=== PATIENT | male | born 1940 | race Caucasian/White ===

== ENCOUNTER 2024-01-09 17:41 | Observation (INO) ==
--- NOTE | 2024-01-09 17:49 | DR.AMS ---
HPI Time Seen Time Seen by Provider: 01/09/24 17:49 PE Vitals Vital Signs: Temp Pulse Resp BP Pulse Ox O2 Del Method 01/09/24 22:15 66 97 01/09/24 22:09 68 97 01/09/24 22:09 176/81 01/09/24 22:06 69 96 01/09/24 22:00 180/79 01/09/24 21:33 160/77 01/09/24 21:30 190/77 01/09/24 21:01 167/75 01/09/24 20:35 139/76 01/09/24 20:35 139/76 01/09/24 18:57 67 96 01/09/24 21:28 167/75 01/09/24 18:45 67 97 01/09/24 18:30 134/92 01/09/24 18:30 69 97 01/09/24 18:15 68 97 01/09/24 18:05 68 96 01/09/24 18:00 161/74 01/09/24 17:53 97.9 F 71 18 171/77 96 Room Air ROR Labs Reviewed Laboratory Results Reviewed?: Yes 01/11/24 05:08 01/11/24 05:08 Laboratory: WBC 8.3 X10^3/uL (3.6-10.0) 01/09/24 19:16 RBC 2.90 X10^6/uL (4.7-6.0) L 01/09/24 19:16 Hgb 9.4 g/dL (13.5-18.0) L 01/09/24 19:16 Hct 27.7 % (42.0-54.0) L 01/09/24 19:16 MCV 95.4 fL (80.0-100.0) 01/09/24 19:16 MCH 32.4 pg (27.0-34.0) 01/09/24 19:16 MCHC 34.0 g/dL (33.0-35.0) 01/09/24 19:16 RDW 14.1 % (11.6-16.5) 01/09/24 19:16 Plt Count 164 X10^3/uL (150.0-450.0) 01/09/24 19:16 MPV 9.3 fL (7.4-11.0) 01/09/24 19:16 Neut % (Auto) 65.9 % (42.0-75.0) 01/09/24 19:16 Lymph % (Auto) 13.9 % (21.0-51.0) L 01/09/24 19:16 [place] % (Auto) 15.8 % (0.0-13.0) H 01/09/24 19:16 Eos % (Auto) 3.9 % (0.9-2.9) H 01/09/24 19:16 Baso % (Auto) 0.5 % (0.2-1.0) 01/09/24 19:16 Neut # (Auto) 5.5 x10^3/uL (2.2-4.8) H 01/09/24 19:16 Lymph # (Auto) 1.1 X10^3/uL (1.3-2.9) L 01/09/24 19:16 [place] # (Auto) 1.3 x10^3/uL (0.3-0.8) H 01/09/24 19:16 Eos # (Auto) 0.3 x10^3/uL (0.0-0.2) H 01/09/24 19:16 Baso # (Auto) 0.0 X10^3/uL (0.0-0.1) 01/09/24 19:16 Absolute Nucleated RBC 0.0 /100WBC 01/09/24 19:16 Sodium 128 mmol/L (136-145) L 01/09/24 19:16 Corrected Sodium TNP 01/09/24 19:16 Potassium 4.9 mmol/L (3.5-5.1) 01/09/24 19:16 Chloride 94 mmol/L (98-107) L 01/09/24 19:16 Carbon Dioxide 26.3 mmol/L (21-32) 01/09/24 19:16 BUN 27 mg/dL (7-18) H 01/09/24 19:16 Creatinine 1.58 mg/dL (0.70-1.30) H 01/09/24 19:16 Est GFR (MDRD) Af Amer 54 (>60) L 01/09/24 19:16 Est GFR (MDRD) Non-Af 45 (>60) L 01/09/24 19:16 Glucose 99 mg/dL (65-99) 01/09/24 19:16 Calcium 8.1 mg/dL (8.5-10.1) L 01/09/24 19:16 Corrected Calcium 8.9 mg/dL (8.5-10.1) 01/09/24 19:16 Total Bilirubin 0.90 mg/dL (0.2-1.0) 01/09/24 19:16 AST 11 Units/L (15-37) L 01/09/24 19:16 ALT 12 Units/L (12-78) 01/09/24 19:16 Alkaline Phosphatase 70 Units/L (46-116) 01/09/24 19:16 Total Protein 5.9 g/dL (6.4-8.2) L 01/09/24 19:16 Albumin 3.0 g/dL (3.4-5.0) L 01/09/24 19:16 Globulin 2.9 g/dL (2.5-4.5) 01/09/24 19:16 Albumin/Globulin Ratio 1.0 Ratio (1.1-2.1) L 01/09/24 19:16 Specimen Type Clean catch urine 01/09/24 18:17 Urine Color Yellow (YELLOW) 01/09/24 18:17 Urine Appearance Clear (CLEAR) 01/09/24 18:17 Urine pH 6.0 (5.0 - 8.0) 01/09/24 18:17 Ur Specific [place] 1.015 (1.000-1.030) 01/09/24 18:17 Urine Protein Negative (NEGATIVE) 01/09/24 18:17 Urine Glucose (UA) Negative (NEGATIVE) 01/09/24 18:17 Urine Ketones Negative (NEGATIVE) 01/09/24 18:17 Urine Blood Negative (NEGATIVE) 01/09/24 18:17 Urine Nitrite Negative (NEGATIVE) 01/09/24 18:17 Urine Bilirubin Negative (NEGATIVE) 01/09/24 18:17 Urine Urobilinogen 1+ (NORMAL) 01/09/24 18:17 Ur Leukocyte Esterase Negative (NEGATIVE) 01/09/24 18:17 Urine RBC None seen /HPF (0-3) 01/09/24 18:17 Urine WBC 0-2 /HPF (0-5) 01/09/24 18:17 Ur Squamous Epith Cells Negative /HPF (NEGATIVE) 01/09/24 18:17 Amorphous Sediment Trace /HPF (NEGATIVE) 01/09/24 18:17 Urine Bacteria Trace /HPF (NEGATIVE) 01/09/24 18:17 Ur Culture Indicated? No/not indicated 01/09/24 18:17 Opioid Opioid Risk Tool Total: 0 Total Score Risk Category: Low Risk Copyright: Ney CARLOS predicting aberrant behaviors Discharge Plan Diagnosis Discharge Problem: Acute hyponatremia, Parkinson's disease, Delirium Discharge Plan Patient Disposition: ADMITTED INPATIENT Condition: Stable
[2024-01-09 18:30] LABS: BILIRUBIN,URINE NEGATIVE (NEGATIVE); BLOOD/HEMOGLOBIN,URINE NEGATIVE (NEGATIVE); GLUCOSE, URINE NEGATIVE (NEGATIVE); KETONES,URINE NEGATIVE (NEGATIVE); LEUKOCYTE ESTERASE ,URINE NEGATIVE (NEGATIVE); NITRITES,URINE NEGATIVE (NEGATIVE); PROTEIN,URINE NEGATIVE (NEGATIVE); UROBILINOGEN,URINE 1+ (NORMAL)
[2024-01-09 18:37] LABS: APPEARANCE,URINE CLEAR (CLEAR); BACTERIA,URINE TRACE /HPF (NEGATIVE); COLOR,URINE YELLOW (YELLOW); RBC,URINE NONE SEEN /HPF (0-3); SQUAMOUS EPITHELIAL CELL,UR NEGATIVE /HPF (NEGATIVE)
--- NOTE | 2024-01-09 19:25 | CT ---
EXAM: BRAIN W/O CON HISTORY: hallucinations, ams; COMPARISON: 08/09/2022 TECHNIQUE: Multiple axial images of the head were performed from the skullbase to the vertex using standard depa rtmental protocol. Sagittal and coronal reformatted images were performed. Dose reduction techniques including Automated Exposure Control (AEC) and adjustment of mA and kV were utilized. FINDINGS: The sulci, cisterns and ventricles are age appropriate. Mild cortical atrophy compatible with patien t's age. Decreased attenuation in the periventricular and subcortical white matter consistent with m icrovascular ischemic white matter changes. There is no evidence of acute territorial infarction, he morrhage, mass, mass effect or midline shift. There are no abnormal intra-axial or extra-axial fluid collections. The visualized paranasal sinuses and mastoid air cells are predominantly clear. IMPRESSION: Mild cortical atrophy with microvascular ischemic white matter changes. No acute intracranial pathology THIS IS AN ELECTRONICALLY VERIFIED FINAL REPORT 01/09/2024 7:21 PM - Electronically signed by Maverick Clancy MD
[2024-01-09 19:27] LABS: BASOPHILS % (AUTO) 0.5 % (0.2-1.0); EOSINOPHILS # (AUTO) 0.3 x10^3/uL (0.0-0.2); EOSINOPHILS % (AUTO) 3.9 % (0.9-2.9); HEMATOCRIT 27.7 % (42.0-54.0); HEMOGLOBIN 9.4 g/dL (13.5-18.0); LYMPHOCYTES # (AUTO) 1.1 X10^3/uL (1.3-2.9); LYMPHOCYTES % (AUTO) 13.9 % (21.0-51.0); MEAN CORPUSCULAR HEMOGLOBIN 32.4 pg (27.0-34.0); MEAN CORPUSCULAR VOLUME 95.4 fL (80.0-100.0); MEAN PLATELET VOLUME 9.3 fL (7.4-11.0); MONOCYTES # (AUTO) 1.3 x10^3/uL (0.3-0.8); MONOCYTES % (AUTO) 15.8 % (0.0-13.0); NEUTROPHILS # (AUTO) 5.5 x10^3/uL (2.2-4.8); NEUTROPHILS % (AUTO) 65.9 % (42.0-75.0); PLATELET COUNT 164 X10^3/uL (150.0-450.0); RED CELL DISTRIBUTION WIDTH 14.1 % (11.6-16.5); WHITE BLOOD COUNT 8.3 X10^3/uL (3.6-10.0)
[2024-01-09 19:37] LABS: ALANINE AMINOTRANSFERASE 12 Units/L (12-78); ALKALINE PHOSPHATASE 70 Units/L (46-116); ASPARTATE AMINO TRANSFERASE 11 Units/L (15-37); BLOOD UREA NITROGEN 27 mg/dL (7-18); CALCIUM 8.1 mg/dL (8.5-10.1); CARBON DIOXIDE 26.3 mmol/L (21-32); CHLORIDE 94 mmol/L (98-107); COR CA(FOR HYPOALB) 8.9 mg/dL (8.5-10.1); CREATININE 1.58 mg/dL (0.70-1.30); GLUCOSE 99 mg/dL (65-99); POTASSIUM 4.9 mmol/L (3.5-5.1); SODIUM 128 mmol/L (136-145); TOTAL PROTEIN 5.9 g/dL (6.4-8.2); eGFR NON BLACK RACES 45 (>60)
--- NOTE | 2024-01-09 20:05 | RAD ---
EXAM:FRONTAL VIEW CHEST X-RAYHISTORY:coughing, ams;COMPARISON:None.FINDINGS:Right thoracic skin shadow is notedNo focal consolidation is seen.The heart size is within normal limits.The mediastinum is unremarkable.There is no evidence of pleural effusion or gross pneumothorax.The trachea is midline.IMPRESSION:No focal consolidation is seen.The heart size is normal.THIS IS AN ELECTRONICALLY VERIFIED FINAL REPORT01/09/2024 8:02 PM - Electronically signed by Marcellus Tim MD
[2024-01-09] MEDS ORDERED: NS 1,000 ML IV 1,000 ML ONE (20:11)
[2024-01-09] MEDS: NS 1,000 ML IV 1,000 ML IV ONE (20:17)
--- NOTE | 2024-01-09 21:31 | DR.AMS ---
HPI Time Seen Time Seen by Provider: 01/09/24 17:49 PCP Primary Care Physician: Hui HPI Comment HPI Comment: According to family patient has history of Parkinson disease. Does well. Does have intermittent confusion which seem to have worsened today. Family were concerned that he may have a urinary tract infection or urosepsis brought him to the ER for evaluation. Patient did have a fall couple days ago did hurt his elbow no head injury that they can recall. Has no vomiting no diarrhea no aggressive behavior towards family Complaint Cheif Complaint Doctors Comments: altered mental status Chief Complaint:: EMS was called out the patient due to increased confusion and hallucinating. They state that the patient has parkinson's and does have a small amount of confusion on most days, but today was much worse. They state that he has answered questions inappropriate and has seen people that were not there. The patient has been this way in the past due to a UTI, and they are concerned that he has one now. COVID-19 Coronavirus risk:travel/contact w/high risk person: No Has patient experienced Coronavirus symptoms: No Reviewed Nurses Notes Reviewed: Yes Source History Provided: Patient, Family Member and EMS Mode of Arrival Mode of Arrival: Stretcher Timing Onset of Chief Complaint: 01/09/24 Came On: Gradually Symptoms: Worsening Duration Duration: Since Onset Duration: Hours PMH PMH Past Medical History: Yes Past Medical History: Hypertension Past Medical History Comment: Parkinson's, Afib Past Surgical History: Yes Surgical History: Ortho Surgery and Other Past Surgical History Comment: cataract, back Family History History of Family Medical Conditions: Yes Family Medical History: Diabetes Mellitus, Cancer, [place], Coronary Artery Disease and Hypertension Social History Does patient currently use any type of tobacco product: No Have you used tobacco products in the last 12 months: No Type of Tobacco Use: None Does any household member use tobacco: No Alcohol Use: None Do you use any recreational Drugs:: No Lives With: Family Lives Where: Home Travel Risk Coronavirus risk:travel/contact w/high risk person: No Has patient experienced Coronavirus symptoms: No Infectious screening In the last 2 months have you had wt loss of >10#?: NO Have you had fever, night sweats or hemotysis?: No Have you traveled outside the country in the last 6 months?: No Isolation: Standard ROS Review of Systems Constitutional: No Symptoms Reported Eyes: No Symptoms Reported ENTM: No Symptoms Reported Respiratoy: No Symptoms Reported Cardiovascular: No Symptoms Reported Gastrointestinal/Abdominal: No Symptoms Reported Genitourinary: No Symptoms Reported Neurological: See HPI Musculoskeletal: No Symptoms Reported Integumentary: No Symptoms Reported PE Vitals Vital Signs: Temp Pulse Resp BP Pulse Ox O2 Del Method 01/09/24 22:09 68 97 01/09/24 22:09 176/81 01/09/24 22:06 69 96 01/09/24 22:00 180/79 01/09/24 21:33 160/77 01/09/24 21:30 190/77 01/09/24 21:01 167/75 01/09/24 20:35 139/76 01/09/24 20:35 139/76 01/09/24 18:57 67 96 01/09/24 21:28 167/75 01/09/24 18:45 67 97 01/09/24 18:30 134/92 01/09/24 18:30 69 97 01/09/24 18:15 68 97 01/09/24 18:05 68 96 01/09/24 18:00 161/74 01/09/24 17:53 97.9 F 71 18 171/77 96 Room Air General Limitations: No Limitations General Appearance: Alert, In No Apparent Distress and Anxious Head Head Exam: Normal Inspection, Atraumatic and Normocephalic Eyes Eye exam: Normal Appearance and PERRL ENT ENT Exam: Mucous Membranes Moist Neck Neck Exam: Normal Inspection and Full ROM Chest Chest Inspection: Normal Inspection and Symmetric Chest Wall Rise Respiratory Respiratory Exam: Bilateral: Clear to Auscultation Cardiovascular Cardiovascular Exam: +S1 and +S2 Abdominal Exam Abdominal Exam: Normal Inspection, Normal Bowel Sounds and Soft Extremities Extremities Exam: Full ROM Neurological Neurological Exam: Alert (But no oriented to person place or time. Mask like facies, bradykinesia, no increased tone of the upper or lower) Skin Skin Exam: Normal Color MDM Differential Diagnosis Metabolic: Dehydration, Delirium tr. and Hyponatremia Infectious: UTI COURSE Treatment Treatment: labs ,cxr ,ct head Reevaluation 1st: Unchanged ROR Labs Reviewed 01/09/24 19:16 01/09/24 19:16 Laboratory: WBC 8.3 X10^3/uL (3.6-10.0) 01/09/24 19:16 RBC 2.90 X10^6/uL (4.7-6.0) L 01/09/24 19:16 Hgb 9.4 g/dL (13.5-18.0) L 01/09/24 19:16 Hct 27.7 % (42.0-54.0) L 01/09/24 19:16 MCV 95.4 fL (80.0-100.0) 01/09/24 19:16 MCH 32.4 pg (27.0-34.0) 01/09/24 19:16 MCHC 34.0 g/dL (33.0-35.0) 01/09/24 19:16 RDW 14.1 % (11.6-16.5) 01/09/24 19:16 Plt Count 164 X10^3/uL (150.0-450.0) 01/09/24 19:16 MPV 9.3 fL (7.4-11.0) 01/09/24 19:16 Neut % (Auto) 65.9 % (42.0-75.0) 01/09/24 19:16 Lymph % (Auto) 13.9 % (21.0-51.0) L 01/09/24 19:16 [place] % (Auto) 15.8 % (0.0-13.0) H 01/09/24 19:16 Eos % (Auto) 3.9 % (0.9-2.9) H 01/09/24 19:16 Baso % (Auto) 0.5 % (0.2-1.0) 01/09/24 19:16 Neut # (Auto) 5.5 x10^3/uL (2.2-4.8) H 01/09/24 19:16 Lymph # (Auto) 1.1 X10^3/uL (1.3-2.9) L 01/09/24 19:16 [place] # (Auto) 1.3 x10^3/uL (0.3-0.8) H 01/09/24 19:16 Eos # (Auto) 0.3 x10^3/uL (0.0-0.2) H 01/09/24 19:16 Baso # (Auto) 0.0 X10^3/uL (0.0-0.1) 01/09/24 19:16 Absolute Nucleated RBC 0.0 /100WBC 01/09/24 19:16 Sodium 128 mmol/L (136-145) L 01/09/24 19:16 Corrected Sodium TNP 01/09/24 19:16 Potassium 4.9 mmol/L (3.5-5.1) 01/09/24 19:16 Chloride 94 mmol/L (98-107) L 01/09/24 19:16 Carbon Dioxide 26.3 mmol/L (21-32) 01/09/24 19:16 BUN 27 mg/dL (7-18) H 01/09/24 19:16 Creatinine 1.58 mg/dL (0.70-1.30) H 01/09/24 19:16 Est GFR (MDRD) Af Amer 54 (>60) L 01/09/24 19:16 Est GFR (MDRD) Non-Af 45 (>60) L 01/09/24 19:16 Glucose 99 mg/dL (65-99) 01/09/24 19:16 Calcium 8.1 mg/dL (8.5-10.1) L 01/09/24 19:16 Corrected Calcium 8.9 mg/dL (8.5-10.1) 01/09/24 19:16 Total Bilirubin 0.90 mg/dL (0.2-1.0) 01/09/24 19:16 AST 11 Units/L (15-37) L 01/09/24 19:16 ALT 12 Units/L (12-78) 01/09/24 19:16 Alkaline Phosphatase 70 Units/L (46-116) 01/09/24 19:16 Total Protein 5.9 g/dL (6.4-8.2) L 01/09/24 19:16 Albumin 3.0 g/dL (3.4-5.0) L 01/09/24 19:16 Globulin 2.9 g/dL (2.5-4.5) 01/09/24 19:16 Albumin/Globulin Ratio 1.0 Ratio (1.1-2.1) L 01/09/24 19:16 Specimen Type Clean catch urine 01/09/24 18:17 Urine Color Yellow (YELLOW) 01/09/24 18:17 Urine Appearance Clear (CLEAR) 01/09/24 18:17 Urine pH 6.0 (5.0 - 8.0) 01/09/24 18:17 Ur Specific [place] 1.015 (1.000-1.030) 01/09/24 18:17 Urine Protein Negative (NEGATIVE) 01/09/24 18:17 Urine Glucose (UA) Negative (NEGATIVE) 01/09/24 18:17 Urine Ketones Negative (NEGATIVE) 01/09/24 18:17 Urine Blood Negative (NEGATIVE) 01/09/24 18:17 Urine Nitrite Negative (NEGATIVE) 01/09/24 18:17 Urine Bilirubin Negative (NEGATIVE) 01/09/24 18:17 Urine Urobilinogen 1+ (NORMAL) 01/09/24 18:17 Ur Leukocyte Esterase Negative (NEGATIVE) 01/09/24 18:17 Urine RBC None seen /HPF (0-3) 01/09/24 18:17 Urine WBC 0-2 /HPF (0-5) 01/09/24 18:17 Ur Squamous Epith Cells Negative /HPF (NEGATIVE) 01/09/24 18:17 Amorphous Sediment Trace /HPF (NEGATIVE) 01/09/24 18:17 Urine Bacteria Trace /HPF (NEGATIVE) 01/09/24 18:17 Ur Culture Indicated? No/not indicated 01/09/24 18:17 Opioid Opioid Risk Tool Age (Renny box if 16-45): No History of Preadolescent Sexual Abuse: No Total: 0 Total Score Risk Category: Low Risk Copyright: Ney CARLOS predicting aberrant behaviors Discharge Plan Diagnosis Discharge Problem: Acute hyponatremia, Parkinson's disease, Delirium Discharge Plan Patient Disposition: 01 HOME, SELF-CARE Condition: Stable Prescriptions: No Action amlodipine 5 mg tablet 5 mg PO QPM omeprazole 40 mg capsule,delayed release(DR/EC) 40 mg PO QNOON tramadol 50 mg tablet 50 mg PO BID PRN tamsulosin 0.4 mg capsule 0.4 mg PO QPM levothyroxine 50 mcg tablet 50 mcg PO QAM divalproex 125 mg tablet,delayed release (DR/EC) 125 mg PO BID doxazosin 4 mg tablet 4 mg PO BID diclofenac sodium 75 mg tablet,delayed release (DR/EC) 75 mg PO BID dorzolamide-timolol 22.3-6.8 mg/mL drops 1 drp OPHTHALMIC (EYE) BID Patient Comments: [NO ORIGINAL SIG] mirtazapine 15 mg tablet 15 mg PO QPM carbidopa-levodopa 25-100 mg tablet 1 tab PO TID ramipril 5 mg capsule 5 mg PO QAM Eliquis 5 mg tablet 5 mg PO BID potassium gluconate 550 mg (90 mg) Tablet 550 mg PO QNOON Health Concerns: Post Hospitalization: new medications and changes needed to prevent readmission or further decline. Pt educated and given instructions on all concerns. Plan of Treatment: Continue with present treatment and follow up plan. Pt is to keep follow up appointment as instructed and take medications as ordered. Orders to Discharge Patient Discharge Orders: Transfer (Routine); Ordered 01/09/24 Ordered By: Dung Colon Follow ups/Referrals Follow ups/Referrals: [facility],None [STAFF PHYSICIAN] - 3 days Instructions Stand Alone Forms: Post Hospital Follow Up Care ADDITIONAL NOTES Additional Notes Additional Notes: spoke with Dr Gallagher .agreed to have patient admitted
[2024-01-09] MEDS: KLONOPIN TAB 0.5 MG PO ONE (22:36)
[2024-01-09] MEDS: NS 1,000 ML IV 1,000 ML IV SCH (23:59)
[2024-01-10 00:11] VITALS: BMI 23.8
[2024-01-10] MEDS: ULTRAM PO PRN (00:50)
[2024-01-10] MEDS: SINEMET (PLAIN) 25/100 MG PO SCH (05:16)
[2024-01-10 06:16] LABS: BASOPHILS % (AUTO) 0.6 % (0.2-1.0); EOSINOPHILS # (AUTO) 0.2 x10^3/uL (0.0-0.2); EOSINOPHILS % (AUTO) 3.1 % (0.9-2.9); HEMATOCRIT 24.4 % (42.0-54.0); HEMOGLOBIN 8.4 g/dL (13.5-18.0); LYMPHOCYTES % (AUTO) 15.1 % (21.0-51.0); MEAN CORPUSCULAR HEMOGLOBIN 32.8 pg (27.0-34.0); MEAN CORPUSCULAR HGB CONC 34.6 g/dL (33.0-35.0); MEAN CORPUSCULAR VOLUME 94.8 fL (80.0-100.0); MEAN PLATELET VOLUME 9.6 fL (7.4-11.0); MONOCYTES % (AUTO) 15.9 % (0.0-13.0); NEUTROPHILS # (AUTO) 4.2 x10^3/uL (2.2-4.8); NEUTROPHILS % (AUTO) 65.3 % (42.0-75.0); PLATELET COUNT 151 X10^3/uL (150.0-450.0); RED BLOOD COUNT 2.57 X10^6/uL (4.7-6.0); RED CELL DISTRIBUTION WIDTH 13.6 % (11.6-16.5); WHITE BLOOD COUNT 6.4 X10^3/uL (3.6-10.0)
[2024-01-10 06:30] LABS: ALANINE AMINOTRANSFERASE 8 Units/L (12-78); ALBUMIN 2.6 g/dL (3.4-5.0); ALKALINE PHOSPHATASE 64 Units/L (46-116); ASPARTATE AMINO TRANSFERASE 10 Units/L (15-37); BLOOD UREA NITROGEN 21 mg/dL (7-18); CALCIUM 7.9 mg/dL (8.5-10.1); CHLORIDE 99 mmol/L (98-107); CREATININE 1.33 mg/dL (0.70-1.30); GLUCOSE 108 mg/dL (65-99); SODIUM 132 mmol/L (136-145); TOTAL PROTEIN 5.3 g/dL (6.4-8.2); eGFR NON BLACK RACES 54 (>60)
[2024-01-10 09:46] LABS: RETICULOCYTE % 0.87 % (0.8-2.2)
[2024-01-10] MEDS: SYNTHROID 50 mcg TAB PO SCH (09:58)
[2024-01-10] MEDS: COSOPT OPTH OP SCH (09:58)
[2024-01-10] MEDS: CARDURA PO SCH (09:58)
[2024-01-10] MEDS: ALTACE 5 MG CAP PO SCH (09:58)
[2024-01-10] MEDS: DEPAKOTE SPRINKLE PO SCH (09:58)
[2024-01-10] MEDS: ELIQUIS PO SCH (09:58)
[2024-01-10] MEDS: MILK OF MAGNESIA PO SCH (09:58)
[2024-01-10] MEDS: NS 100 ML IV 100 ML with VENOFER 100 MG IV ONE (11:45)
[2024-01-10] MEDS: VOLTAREN 1 % GEL MULTI DOSE TUBE TOP SCH (11:45)
[2024-01-10] MEDS: PROCRIT or EPOGEN VIAL 10,000 UNITS SC SCH (11:45)
[2024-01-10] MEDS: COLACE CAP 100 MG PO SCH (20:13)
[2024-01-10] MEDS: FLOMAX PO SCH (20:13)
[2024-01-10] MEDS: NORVASC TAB 5 MG PO SCH (20:13)
[2024-01-10] MEDS ORDERED: REMERON PO SCH (21:00)
[2024-01-11 05:35] LABS: BASOPHILS % (AUTO) 0.6 % (0.2-1.0); EOSINOPHILS # (AUTO) 0.2 x10^3/uL (0.0-0.2); EOSINOPHILS % (AUTO) 2.1 % (0.9-2.9); HEMATOCRIT 24.4 % (42.0-54.0); HEMOGLOBIN 8.2 g/dL (13.5-18.0); LYMPHOCYTES % (AUTO) 13.6 % (21.0-51.0); MEAN CORPUSCULAR HGB CONC 33.6 g/dL (33.0-35.0); MEAN CORPUSCULAR VOLUME 95.1 fL (80.0-100.0); MEAN PLATELET VOLUME 9.1 fL (7.4-11.0); MONOCYTES # (AUTO) 1.3 x10^3/uL (0.3-0.8); MONOCYTES % (AUTO) 18.1 % (0.0-13.0); NEUTROPHILS # (AUTO) 4.8 x10^3/uL (2.2-4.8); NEUTROPHILS % (AUTO) 65.6 % (42.0-75.0); PLATELET COUNT 179 X10^3/uL (150.0-450.0); RED BLOOD COUNT 2.57 X10^6/uL (4.7-6.0); WHITE BLOOD COUNT 7.3 X10^3/uL (3.6-10.0)
[2024-01-11 05:49] LABS: ALANINE AMINOTRANSFERASE 13 Units/L (12-78); ALBUMIN 2.7 g/dL (3.4-5.0); ALKALINE PHOSPHATASE 66 Units/L (46-116); ASPARTATE AMINO TRANSFERASE 15 Units/L (15-37); BLOOD UREA NITROGEN 16 mg/dL (7-18); CALCIUM 8.2 mg/dL (8.5-10.1); CHLORIDE 104 mmol/L (98-107); COR CA(FOR HYPOALB) 9.2 mg/dL (8.5-10.1); CREATININE 1.09 mg/dL (0.70-1.30); GLUCOSE 92 mg/dL (65-99); POTASSIUM 4.6 mmol/L (3.5-5.1); SODIUM 137 mmol/L (136-145); TOTAL PROTEIN 5.4 g/dL (6.4-8.2); eGFR NON BLACK RACES > 60 (>60)
[2024-01-11] MEDS: VIBRAMYCIN 100 MG in D5W 250 ML IV 250 ML IV SCH (13:55)
[2024-01-11] MEDS: ROBITUSSIN DM PO PRN (13:55)
[2024-01-12 06:13] LABS: BASOPHILS # (AUTO) 0.1 X10^3/uL (0.0-0.1); BASOPHILS % (AUTO) 0.9 % (0.2-1.0); EOSINOPHILS # (AUTO) 0.3 x10^3/uL (0.0-0.2); EOSINOPHILS % (AUTO) 4.8 % (0.9-2.9); HEMATOCRIT 21.7 % (42.0-54.0); HEMOGLOBIN 7.4 g/dL (13.5-18.0); LYMPHOCYTES # (AUTO) 1.5 X10^3/uL (1.3-2.9); LYMPHOCYTES % (AUTO) 23.3 % (21.0-51.0); MEAN CORPUSCULAR HEMOGLOBIN 32.3 pg (27.0-34.0); MEAN CORPUSCULAR VOLUME 94.8 fL (80.0-100.0); MEAN PLATELET VOLUME 9.1 fL (7.4-11.0); MONOCYTES # (AUTO) 1.2 x10^3/uL (0.3-0.8); MONOCYTES % (AUTO) 18.6 % (0.0-13.0); NEUTROPHILS # (AUTO) 3.3 x10^3/uL (2.2-4.8); NEUTROPHILS % (AUTO) 52.4 % (42.0-75.0); PLATELET COUNT 176 X10^3/uL (150.0-450.0); RED BLOOD COUNT 2.29 X10^6/uL (4.7-6.0); RED CELL DISTRIBUTION WIDTH 14.2 % (11.6-16.5); WHITE BLOOD COUNT 6.4 X10^3/uL (3.6-10.0)
[2024-01-12 06:45] LABS: ALANINE AMINOTRANSFERASE 6 Units/L (12-78); ALBUMIN 2.3 g/dL (3.4-5.0); ALKALINE PHOSPHATASE 60 Units/L (46-116); ASPARTATE AMINO TRANSFERASE 12 Units/L (15-37); BLOOD UREA NITROGEN 16 mg/dL (7-18); CALCIUM 7.9 mg/dL (8.5-10.1); CARBON DIOXIDE 25.6 mmol/L (21-32); CHLORIDE 101 mmol/L (98-107); COR CA(FOR HYPOALB) 9.3 mg/dL (8.5-10.1); CREATININE 0.94 mg/dL (0.70-1.30); GLUCOSE 82 mg/dL (65-99); POTASSIUM 4.2 mmol/L (3.5-5.1); SODIUM 131 mmol/L (136-145); TOTAL PROTEIN 4.8 g/dL (6.4-8.2); eGFR NON BLACK RACES > 60 (>60)
[2024-01-12] MEDS: ALTACE 5 MG CAP PO SCH (08:35)
[2024-01-12] MEDS: CORTEF PO SCH ×2 (08:47→13:35)
[2024-01-12] MEDS: CORTEF ONE ×2 (08:48→13:36)
[2024-01-12] MEDS ORDERED: CORTEF PO SCH (09:00)
[2024-01-12] MEDS: FOLIC ACID TAB 1 MG PO SCH (13:35)
[2024-01-13] MEDS ORDERED: CORTEF ONE (04:26)
[2024-01-13 06:07] LABS: BASOPHILS # (AUTO) 0.1 X10^3/uL (0.0-0.1); BASOPHILS % (AUTO) 0.8 % (0.2-1.0); EOSINOPHILS # (AUTO) 0.3 x10^3/uL (0.0-0.2); EOSINOPHILS % (AUTO) 4.1 % (0.9-2.9); HEMATOCRIT 25.1 % (42.0-54.0); HEMOGLOBIN 8.4 g/dL (13.5-18.0); LYMPHOCYTES # (AUTO) 1.5 X10^3/uL (1.3-2.9); LYMPHOCYTES % (AUTO) 21.8 % (21.0-51.0); MEAN CORPUSCULAR HEMOGLOBIN 32.3 pg (27.0-34.0); MEAN CORPUSCULAR HGB CONC 33.5 g/dL (33.0-35.0); MEAN CORPUSCULAR VOLUME 96.2 fL (80.0-100.0); MEAN PLATELET VOLUME 8.6 fL (7.4-11.0); MONOCYTES # (AUTO) 1.3 x10^3/uL (0.3-0.8); MONOCYTES % (AUTO) 19.1 % (0.0-13.0); NEUTROPHILS # (AUTO) 3.7 x10^3/uL (2.2-4.8); NEUTROPHILS % (AUTO) 54.2 % (42.0-75.0); PLATELET COUNT 225 X10^3/uL (150.0-450.0); RED BLOOD COUNT 2.61 X10^6/uL (4.7-6.0); RED CELL DISTRIBUTION WIDTH 14.1 % (11.6-16.5); WHITE BLOOD COUNT 6.9 X10^3/uL (3.6-10.0)
[2024-01-13 06:18] LABS: ALANINE AMINOTRANSFERASE < 6 Units/L (12-78); ALBUMIN 2.4 g/dL (3.4-5.0); ALKALINE PHOSPHATASE 71 Units/L (46-116); ASPARTATE AMINO TRANSFERASE 13 Units/L (15-37); BLOOD UREA NITROGEN 13 mg/dL (7-18); CALCIUM 8.2 mg/dL (8.5-10.1); CARBON DIOXIDE 26.8 mmol/L (21-32); CHLORIDE 102 mmol/L (98-107); COR CA(FOR HYPOALB) 9.5 mg/dL (8.5-10.1); CREATININE 0.91 mg/dL (0.70-1.30); GLUCOSE 92 mg/dL (65-99); POTASSIUM 4.1 mmol/L (3.5-5.1); SODIUM 135 mmol/L (136-145); TOTAL PROTEIN 5.1 g/dL (6.4-8.2); eGFR NON BLACK RACES > 60 (>60)
[2024-01-13 08:08] VITALS: BP 187/84; PULSE 72; RESP 18; TEMP 99.1; O2SAT 95
== END 2024-01-13 11:50 | disposition home health service (06) ==
LOC: SUPCPDRO → ER 17:41 → MED/SURG 17:41
PROVIDERS: ADMIT Obstetrics & Gynecology Obstetrics; ATTEND Obstetrics & Gynecology Obstetrics
DX: R41.82 Altered mental status, unspecified; E87.1 Hypo-osmolality and hyponatremia; I10 Essential (primary) hypertension; R79.89 Other specified abnormal findings of blood chemistry; E88.09 Other disorders of plasma-protein metabolism, not elsewhere classified; Z91.81 History of falling; I48.91 Unspecified atrial fibrillation; G20.A1 Parkinson's disease without dyskinesia, without mention of fluctuations; E86.0 Dehydration; R26.89 Other abnormalities of gait and mobility; R44.2 Other hallucinations; F02.80 Dementia in other diseases classified elsewhere, unspecified severity, without behavioral disturbance, psychotic disturbance, mood disturbance, and anxiety; D72.821 Monocytosis (symptomatic)